=== PATIENT | male | born 1960 | race Caucasian/White ===

== ENCOUNTER 2020-04-05 08:22 | Day surgery (SDC) | payer MEDICARE, SELFPAY ==
--- NOTE | 2020-04-05 | DI.RAD_ITS ---
EXAM: XR PORTABLE CHEST AP POST LINE CLINICAL HISTORY: line placement TECHNIQUE: 2D digital imaging was performed. COMPARISON: No exams were available for comparison FINDINGS: A port has been inserted. The tip lies in the SVC. There is no pneumothorax. There is scarring at the right lung base. There is material overlying the left chest. IMPRESSION: Satisfactory port placement. DATA REPOSITORY: RADIATION DOSE DELIVERED:
--- NOTE | 2020-04-05 08:00 | DI.RAD_ITS ---
EXAM: RF LINE PLACEMENT OR CLINICAL HISTORY: port placement. TECHNIQUE: 2D and realtime digital imaging was performed. CONTRAST MATERIAL: None COMPARISON: No exams were available for comparison FINDINGS: Fluoroscopy was provided for guidance with placing of a port. Please see procedure note for detail s. Fluoro time: 35 sec
[2020-04-05 08:31] VITALS: BP 124/85; PULSE 70; RESP 16; TEMP 35.8; O2SAT 99
[2020-04-05] MEDS: Lactated Ringers 1,000 ML 80 ML IV (09:00)
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
[2020-04-05] MEDS: ceFAZolin 2 GM/50 ML BAG IVPB (10:23)
[2020-04-05] MEDS: Normal Saline 50 ML (10:53)
[2020-04-05] MEDS: Heparin 500 UNITS/5 ML SYRINGE (10:53)
--- NOTE | 2020-04-05 11:08 | ROE_ITS ---
Date of service: 04/05/20 Time of Service: 11:09 Operative Note Operative Note DATE OF PROCEDURE: 04/05/20 PRE-OP DIAGNOSIS: eophageal cancer POST-OP DIAGNOSIS: same PROCEDURE: left buried resevior port SURGEON: Carri Cristobal ANESTHESIA: MAC and local ESTIMATED BLOOD LOSS: 5 COMPLICATIONS: None Patient was transported to: same day Procedure Description: Preoperative Diagnosis: Same Postoperative Diagnosis: esohpageal cancer- recurrence Procedure planned: Port placement Procedure performed: left subclavian port placement Anesthesia: Monitored anesthesia care, local Specimen: none Estimated Blood Loss: Less than 10 ml INDICATIONS Please see the H&P. The risks, benefits and alternatives to implanted port for esophageal cancer were discussed with the patient. We specifically discussed the risks of infection, bleeding, injury to blood vessels and lung, pneumothorax, infections, blood clot, port malfunction, complications of anesthesia, the possible need for further procedures, and other unforetold complications. The patient expressed understanding and questions were answered. Informed consent paperwork was completed. DESCRIPTION OF PROCEDURE The patient was brought to the operating room and placed in a supine position on the operating table. Appropriate monitors were attached. The patient received IV antibiotics preoperatively. After sedation was administered, the patient was positioned, prepped with Chloraprep and draped in the standard fashion. Time out was performed confirming the patient's identity and procedure to be performed. Local anesthetic was infiltrated in the skin and subcutaneous tissue in the area below the left clavicle. Cook needle was used to access the left subclavian vein. There was return of non-pulsatile blood. The guide wire was advanced through the needle and placement confirmed using flouroscopy. The needle was removed and the guide wire was secured. Local anesthetic was infiltrated in the area of planned pocket formation. Skin incision was made sharply and carried down to the subcutaneous tissue. Hemostasis was excellent. The pocket was checked for size and the port fit without difficulty. The dilator and sheath were advanced over the wire under flouroscopy. The dilator and wire were removed. The catheter was flushed with heparinized saline and advanced through the sheath under fluoroscopy. The sheath was then removed with no difficulty. The catheter tip was confirmed in the superior vena cava with fluoroscopy. The catheter was cut at 23 cm and attached to the port and locked in position. The port was positioned in the pocket and secured using Prolene sutures. The port was accessed and withdrew blood and flushed easily. Deep tissue was approximated using Monocryl suture. Further local anesthetic was infiltrated for post- operative pain control. Skin edges were approximated with Monocryl suture. Sterile dressings were applied. The patient was then awakened from sedation and taken to recovery for chest XR in stable condition. All needle, sponge and instrument counts were reported as correct at the conclusion of the case. The patient tolerated the procedure with no immediately apparent complications.
[2020-04-05 11:35] VITALS: BP 125/86; PULSE 78; RESP 17; TEMP 36.6; O2SAT 97
--- NOTE | 2020-04-05 11:36 | PDOC.DSDIS_ITS ---
Discharge Plan Disposition Patient Disposition: HOME Condition: Good Discharge Details Reason For Visit: port a cath Attending Provider: Carri Cristobal Primary Care Provider: Ivelisse Spears Home Meds and New Rx's Prescriptions: No Action albuterol sulfate 2.5 mg /3 mL (0.083 %) Solution For Nebulization 2.5 mg inhalation DIRECTED RF: 0 prochlorperazine maleate 10 mg Tablet 10 mg PO Q6H PRNRF: 0 esomeprazole magnesium 40 mg Capsule,Delayed Release(Dr/Ec) 40 mg PO DAILY RF: 0 albuterol sulfate [ProAir HFA] 90 mcg/actuation Hfa Aerosol Inhaler 2 puff INHALATION PRN PRNRF: 0 naproxen sodium [Aleve] 220 mg Tablet 220 mg PO DAILY PRNRF: 0 Discharge Instructions Additional Instructions: Pain Control Use ice! Ice keeps the swelling down and swelling is what causes pain. Never apply ice directly to the skin. Wrap it in a towel or cloth. Apply ice 20 minutes on and 20 minutes off for pain control. Use as needed. Take tylenol 325 mg by mouth with food every 4 hours as needed for pain. Or ibuprofen 600 mg by mouth with food every 6 hours as needed for pain. Do not take tylenol if you have a history of heavy drinking , hepatits C or liver problems. Do not take ibuprofen if you have a history of stomach ulcers/problem s, bleeding problem or kidney issues. Home care ? Always wash your hands before touching your incision. ? Keep the incision clean, dry, and out of water, keep the incision out of water. ? Do not remove the steri-tapes over the incision. ? You can take a shower in 24 hours and wash the incision with soap and water. Pat dry/don?t scrub. It?s OK to wash around the incision. But don?t spray water directly on it. ? If there is a bandage (dressing) over the incision, change this every 24 hours as instructed by your provider. Using clean hands change the dressing as directed by your healthcare provider. Always wash your hands before changing your dressing. ? Make sure any clothing that touches the incision is loose-fitting. This will prevent rubbing. ? Try to avoid from rough play, contact sports, or physical activities for two weeks. This can put you at risk of opening the incision. ? Make sure you avoid doing things that could cause dirt or sweat to get in or on the incision. As your incision heals, the skin may appear pink or red. It may also feel slightly bumpy or raised. This is called a healing ridge. Over time, the color should fade and the raised skin will become less noticeable. When to seek medical care Call your healthcare provider right away if you have any of these: ? More pain, redness, swelling, bleeding, or foul-smelling discharge around the incision area ? Fever of 101?F (38.3?C) or higher, or as directed by your child's healthcare provider ? Shaking chills ? Vomiting or nausea that doesn?t go away ? Numbness, coldness, or tingling around the incision area, or changes in skin color ? Opening of the sutures or wound Stitches or chicho come apart or fall out or surgical tape falls off before 7 days, or as directed by your healthcare provider -F/u w/ oncology as directed for chemo and flushing the port. Activity:: No lifting over 5 pounds with left arm x5 days Remove Dressings/Wound Care:: 24 hours Shower/Bathe:: 24 hours Diet:: Small light meals x24 hours Discharge Orders Discharge Orders: Discharge Order (Routine); Ordered 04/05/20 Ordered By: Carri Cristobal DS: Diagnosis Discharge Diagnosis (1) Asthma: Status: Chronic (2) Esophageal cancer: Status: Acute (3) HTN (hypertension): Status: Chronic (4) Mixed hyperlipidemia: Status: Acute
== END 2020-04-05 11:15 | disposition home or self-care (01) ==
PROVIDERS: PCP Physician Assistant; Visit Provider Surgery
PROC: (CPT 36561; principal; 2020-04-05 10:00)
DX: Z45.2 Encounter for adjustment and management of vascular access device (principal); C15.9 Malignant neoplasm of esophagus, unspecified
CPT/HCPCS: 36561; 71045; 77001; NC; C1788; J0690

== ENCOUNTER 2020-04-19 02:42 | Outpatient (RCR) | payer MEDICARE, SELFPAY ==
[2020-04-19] MEDS: Normal Saline Flush 10 ML SYR IVP (10:20)
[2020-04-19 10:27] LABS: Abs Immature Grans 0.01 10^3/uL (0.0-0.06); Absolute Basophil Count 0.05 10^3/uL (0.0-0.2); Absolute Eosinophil Count 0.11 10^3/uL (0.0-0.7); Absolute Lymphocyte Count 1.26 10^3/uL (1.2-3.4); Absolute Monocyte Count 0.71 10^3/uL (0.1-0.8); Absolute Neutrophil Count 3.07 10^3/uL (1.2-6.7); Eosinophils % 2.1; HCT 47.7 % (40.0-50.0); HGB 16.6 g/dL (13.5-17.5); Immature Grans % 0.2; Lymphocytes % 24.2; MCH 33.3 pg (27.0-33.0); MCHC 34.8 % (32.0-36.0); MCV 95.6 fL (80-95); MPV 9.9 fL (8.0-11.0); Monocytes % 13.6; Neutrophils % 58.9; Nucleated RBC 0 %; Platelet Count 192 10^3/uL (130-400); RBC 4.99 10^6/uL (4.36-5.78); RDW-SD 41.8 fL; WBC 5.21 10^3/uL (4.4-10.8)
[2020-04-19 10:40] LABS: ALT 26 U/L (16-63); AST 17 U/L (15-37); Alkaline Phosphatase 78 U/L (46-116); Anion Gap 7.2 mmol/L (3-11); BUN 14 mg/dL (7-18); Bilirubin, Total 0.4 mg/dL (0.2-1.0); CO2 27.8 mmol/L (21.0-32.0); CREATININE 0.78 mg/dL (0.70-1.30); Chloride 104 mmol/L (98-107); Glucose 165 mg/dL (74-106); Potassium 4.4 mmol/L (3.5-5.1); Sodium 139 mmol/L (136-145); Total Protein 7.2 g/dL (6.4-8.2)
== END 2020-04-19 23:59 | disposition home or self-care (01) ==
LOC: INF 02:42
PROVIDERS: PCP Physician Assistant; Visit Provider Nurse Practitioner Family
DX: C15.5 Malignant neoplasm of lower third of esophagus (principal); Z45.2 Encounter for adjustment and management of vascular access device
CPT/HCPCS: 36591; 80053; 85025

== ENCOUNTER 2020-05-03 15:35 | Outpatient (REF) | payer MEDICARE, SELFPAY ==
[2020-05-03 16:25] LABS: Bilirubin Negative (Negative); Blood Negative (Negative); Clarity Clear (Clear); Glucose Negative (Negative); Ketones Negative (Negative); Leukocyte Esterase Negative (Negative); Nitrite Negative (Negative); Urobilinogen 0.2 EU/dL (Up TO 0.2)
== END 2020-05-03 15:55 ==
LOC: LBN 15:35
PROVIDERS: PCP Physician Assistant; Visit Provider Internal Medicine Medical Oncology
DX: C15.5 Malignant neoplasm of lower third of esophagus (principal)
CPT/HCPCS: 81003

== ENCOUNTER 2020-05-17 02:12 | Outpatient (RCR) | payer MEDICARE, SELFPAY ==
[2020-05-03] MEDS: Normal Saline Flush 10 ML SYR IVP (10:12)
[2020-05-03 10:47] LABS: Abs Immature Grans 0.01 10^3/uL (0.0-0.06); Absolute Basophil Count 0.05 10^3/uL (0.0-0.2); Absolute Eosinophil Count 0.12 10^3/uL (0.0-0.7); Absolute Lymphocyte Count 0.97 10^3/uL (1.2-3.4); Absolute Monocyte Count 0.71 10^3/uL (0.1-0.8); Basophils % 1.3; Eosinophils % 3.1; HCT 39.8 % (40.0-50.0); HGB 14.4 g/dL (13.5-17.5); Immature Grans % 0.3; Lymphocytes % 24.8; MCH 33.5 pg (27.0-33.0); MCHC 36.2 % (32.0-36.0); MCV 92.6 fL (80-95); MPV 9.7 fL (8.0-11.0); Monocytes % 18.2; Neutrophils % 52.3; Nucleated RBC 0 %; Platelet Count 192 10^3/uL (130-400); RDW 12.1 % (11.8-14.1); RDW-SD 40.9 fL; WBC 3.91 10^3/uL (4.4-10.8)
[2020-05-03 10:48] LABS: ALT 34 U/L (16-63); AST 19 U/L (15-37); Albumin 3.8 g/dL (3.4-5.0); Alkaline Phosphatase 81 U/L (46-116); Anion Gap 6.9 mmol/L (3-11); BUN 8 mg/dL (7-18); Bilirubin, Total 0.3 mg/dL (0.2-1.0); CO2 30.1 mmol/L (21.0-32.0); CREATININE 0.74 mg/dL (0.70-1.30); Calcium 8.6 mg/dL (8.5-10.1); Chloride 104 mmol/L (98-107); Glucose 104 mg/dL (74-106); Potassium 3.8 mmol/L (3.5-5.1); Sodium 141 mmol/L (136-145); Total Protein 6.9 g/dL (6.4-8.2)
[2020-05-03 10:52] LABS: Absolute Neutrophil Count 2.04 10^3/uL (1.2-6.7)
[2020-05-17] MEDS: Normal Saline Flush 10 ML SYR IVP (10:10)
[2020-05-17 10:20] LABS: Absolute Basophil Count 0.04 10^3/uL (0.0-0.2); Absolute Eosinophil Count 0.08 10^3/uL (0.0-0.7); Absolute Lymphocyte Count 1.01 10^3/uL (1.2-3.4); Absolute Monocyte Count 0.51 10^3/uL (0.1-0.8); Absolute Neutrophil Count 1.29 10^3/uL (1.2-6.7); Basophils % 1.4; Eosinophils % 2.7; HCT 41.5 % (40.0-50.0); HGB 14.7 g/dL (13.5-17.5); Lymphocytes % 34.5; MCH 33.4 pg (27.0-33.0); MCHC 35.4 % (32.0-36.0); MCV 94.3 fL (80-95); MPV 9.4 fL (8.0-11.0); Monocytes % 17.4; Nucleated RBC 0 %; Platelet Count 136 10^3/uL (130-400); RDW 13.1 % (11.8-14.1); RDW-SD 42.4 fL; WBC 2.93 10^3/uL (4.4-10.8)
[2020-05-17 10:39] LABS: ALT 32 U/L (16-63); AST 17 U/L (15-37); Albumin 3.8 g/dL (3.4-5.0); Alkaline Phosphatase 93 U/L (46-116); Anion Gap 6.2 mmol/L (3-11); BUN 12 mg/dL (7-18); Bilirubin, Total 0.5 mg/dL (0.2-1.0); CO2 27.8 mmol/L (21.0-32.0); Calcium 9.1 mg/dL (8.5-10.1); Chloride 105 mmol/L (98-107); Glucose 155 mg/dL (74-106); Potassium 3.5 mmol/L (3.5-5.1); Sodium 139 mmol/L (136-145)
== END 2020-05-19 23:59 | disposition home or self-care (01) ==
LOC: INF 02:12
PROVIDERS: PCP Physician Assistant; Visit Provider Nurse Practitioner Family
DX: C15.5 Malignant neoplasm of lower third of esophagus (principal); Z45.2 Encounter for adjustment and management of vascular access device
CPT/HCPCS: 36591; 80053; 85025

== ENCOUNTER 2020-06-07 01:34 | Outpatient (RCR) | payer MEDICARE, SELFPAY ==
[2020-05-31] MEDS: Normal Saline Flush 10 ML SYR IVP (10:35)
[2020-05-31] MEDS: Heparin 500 UNITS/5 ML SYRINGE IV (10:35)
[2020-05-31 10:53] LABS: Abs Immature Grans 0.01 10^3/uL (0.0-0.06); Absolute Basophil Count 0.03 10^3/uL (0.0-0.2); Absolute Eosinophil Count 0.02 10^3/uL (0.0-0.7); Absolute Lymphocyte Count 0.87 10^3/uL (1.2-3.4); Absolute Monocyte Count 0.64 10^3/uL (0.1-0.8); Absolute Neutrophil Count 1.95 10^3/uL (1.2-6.7); Basophils % 0.9; Eosinophils % 0.6; HCT 40.2 % (40.0-50.0); HGB 14.3 g/dL (13.5-17.5); Immature Grans % 0.3; Lymphocytes % 24.7; MCH 33.3 pg (27.0-33.0); MCHC 35.6 % (32.0-36.0); MCV 93.5 fL (80-95); MPV 9.8 fL (8.0-11.0); Monocytes % 18.2; Neutrophils % 55.3; Nucleated RBC 0 %; Platelet Count 155 10^3/uL (130-400); RDW 13.8 % (11.8-14.1); RDW-SD 45.7 fL; WBC 3.52 10^3/uL (4.4-10.8)
[2020-05-31 11:09] LABS: ALT 28 U/L (16-63); AST 17 U/L (15-37); Albumin 3.4 g/dL (3.4-5.0); Alkaline Phosphatase 87 U/L (46-116); Anion Gap 10.4 mmol/L (3-11); BUN 14 mg/dL (7-18); Bilirubin, Total 0.6 mg/dL (0.2-1.0); CO2 26.6 mmol/L (21.0-32.0); CREATININE 0.97 mg/dL (0.70-1.30); Calcium 9.8 mg/dL (8.5-10.1); Chloride 102 mmol/L (98-107); Glucose 230 mg/dL (74-106); Potassium 3.3 mmol/L (3.5-5.1); Sodium 139 mmol/L (136-145); Total Protein 7.6 g/dL (6.4-8.2)
[2020-06-07] MEDS: Normal Saline Flush 10 ML SYR IVP (11:11)
[2020-06-07 11:13] LABS: Abs Immature Grans 0.07 10^3/uL (0.0-0.06); Absolute Basophil Count 0.03 10^3/uL (0.0-0.2); Absolute Eosinophil Count 0.04 10^3/uL (0.0-0.7); Absolute Lymphocyte Count 1.03 10^3/uL (1.2-3.4); Absolute Neutrophil Count 2.47 10^3/uL (1.2-6.7); Basophils % 0.7; Eosinophils % 0.9; HCT 40.4 % (40.0-50.0); HGB 14.5 g/dL (13.5-17.5); Immature Grans % 1.7; Lymphocytes % 24.3; MCH 34.4 pg (27.0-33.0); MCHC 35.9 % (32.0-36.0); MCV 95.7 fL (80-95); Monocytes % 14.2; Neutrophils % 58.2; Nucleated RBC 0 %; Platelet Count 316 10^3/uL (130-400); RBC 4.22 10^6/uL (4.36-5.78); RDW-SD 47.9 fL; WBC 4.24 10^3/uL (4.4-10.8)
[2020-06-07 11:25] LABS: ALT 33 U/L (16-63); AST 20 U/L (15-37); Albumin 3.5 g/dL (3.4-5.0); Alkaline Phosphatase 126 U/L (46-116); Anion Gap 6.6 mmol/L (3-11); BUN 9 mg/dL (7-18); Bilirubin, Total 0.3 mg/dL (0.2-1.0); CO2 29.4 mmol/L (21.0-32.0); CREATININE 0.87 mg/dL (0.70-1.30); Calcium 9.5 mg/dL (8.5-10.1); Chloride 104 mmol/L (98-107); Glucose 121 mg/dL (74-106); Sodium 140 mmol/L (136-145); Total Protein 7.3 g/dL (6.4-8.2)
== END 2020-06-19 23:59 | disposition home or self-care (01) ==
LOC: INF 01:34
PROVIDERS: PCP Physician Assistant; Visit Provider Nurse Practitioner Family
DX: C15.5 Malignant neoplasm of lower third of esophagus (principal); Z45.2 Encounter for adjustment and management of vascular access device
CPT/HCPCS: 36591; 80053; 85025

== ENCOUNTER 2020-07-19 02:06 | Outpatient (RCR) | payer MEDICARE, SELFPAY ==
[2020-06-21] MEDS: Normal Saline Flush 10 ML SYR IVP (10:40)
[2020-06-21 10:57] LABS: Abs Immature Grans 0.01 10^3/uL (0.0-0.06); Absolute Basophil Count 0.04 10^3/uL (0.0-0.2); Absolute Eosinophil Count 0.07 10^3/uL (0.0-0.7); Absolute Lymphocyte Count 1.03 10^3/uL (1.2-3.4); Absolute Neutrophil Count 2.47 10^3/uL (1.2-6.7); Basophils % 0.9; Eosinophils % 1.7; HCT 37.4 % (40.0-50.0); HGB 13.2 g/dL (13.5-17.5); Immature Grans % 0.2; Lymphocytes % 24.4; MCH 33.5 pg (27.0-33.0); MCHC 35.3 % (32.0-36.0); MCV 94.9 fL (80-95); MPV 9.6 fL (8.0-11.0); Monocytes % 14.2; Neutrophils % 58.6; Nucleated RBC 0 %; Platelet Count 135 10^3/uL (130-400); RBC 3.94 10^6/uL (4.36-5.78); RDW 15.7 % (11.8-14.1); RDW-SD 52.2 fL; WBC 4.22 10^3/uL (4.4-10.8)
[2020-06-21 11:08] LABS: ALT 31 U/L (16-63); AST 18 U/L (15-37); Albumin 3.6 g/dL (3.4-5.0); Alkaline Phosphatase 109 U/L (46-116); Anion Gap 6.9 mmol/L (3-11); BUN 11 mg/dL (7-18); Bilirubin, Total 0.3 mg/dL (0.2-1.0); CO2 27.1 mmol/L (21.0-32.0); Calcium 8.6 mg/dL (8.5-10.1); Chloride 104 mmol/L (98-107); Glucose 158 mg/dL (74-106); Potassium 3.5 mmol/L (3.5-5.1); Sodium 138 mmol/L (136-145)
== END 2020-07-19 23:59 | disposition home or self-care (01) ==
LOC: INF 02:06
PROVIDERS: PCP Physician Assistant; Visit Provider Nurse Practitioner Family
DX: C15.5 Malignant neoplasm of lower third of esophagus (principal); Z45.2 Encounter for adjustment and management of vascular access device
CPT/HCPCS: 36591; 80053; 85025

== ENCOUNTER 2020-08-02 01:23 | Outpatient (RCR) | payer MEDICARE, SELFPAY ==
[2020-08-02] MEDS: Heparin 500 UNITS/5 ML SYRINGE IV (13:37)
[2020-08-02] MEDS: Normal Saline Flush 10 ML SYR IVP (13:37)
[2020-08-02 13:48] LABS: Abs Immature Grans 0.01 10^3/uL (0.0-0.06); Absolute Basophil Count 0.04 10^3/uL (0.0-0.2); Absolute Eosinophil Count 0.14 10^3/uL (0.0-0.7); Absolute Lymphocyte Count 1.27 10^3/uL (1.2-3.4); Absolute Monocyte Count 0.61 10^3/uL (0.1-0.8); Absolute Neutrophil Count 2.74 10^3/uL (1.2-6.7); Basophils % 0.8; Eosinophils % 2.9; HCT 42.9 % (40.0-50.0); Immature Grans % 0.2; Lymphocytes % 26.4; MCH 34.8 pg (27.0-33.0); MCV 99.5 fL (80-95); MPV 9.9 fL (8.0-11.0); Monocytes % 12.7; Nucleated RBC 0 %; Platelet Count 205 10^3/uL (130-400); RBC 4.31 10^6/uL (4.36-5.78); RDW 13.6 % (11.8-14.1); RDW-SD 50.5 fL; WBC 4.81 10^3/uL (4.4-10.8)
[2020-08-02 14:01] LABS: ALT 35 U/L (16-63); AST 19 U/L (15-37); Alkaline Phosphatase 98 U/L (46-116); Anion Gap 5.5 mmol/L (3-11); BUN 7 mg/dL (7-18); Bilirubin, Total 0.4 mg/dL (0.2-1.0); CO2 28.5 mmol/L (21.0-32.0); CREATININE 0.83 mg/dL (0.70-1.30); Chloride 105 mmol/L (98-107); Glucose 100 mg/dL (74-106); Potassium 3.9 mmol/L (3.5-5.1); Sodium 139 mmol/L (136-145); Total Protein 7.5 g/dL (6.4-8.2)
== END 2020-08-19 23:59 | disposition home or self-care (01) ==
LOC: INF 01:23
PROVIDERS: PCP Physician Assistant; Visit Provider Nurse Practitioner Family
DX: C15.5 Malignant neoplasm of lower third of esophagus (principal); Z45.2 Encounter for adjustment and management of vascular access device
CPT/HCPCS: 36591; 80053; 85025

== ENCOUNTER 2020-09-06 01:46 | Outpatient (RCR) | payer MEDICARE, SELFPAY ==
[2020-09-06] MEDS: Normal Saline Flush 10 ML SYR IVP (10:17)
[2020-09-06 10:18] LABS: Absolute Basophil Count 0.03 10^3/uL (0.0-0.2); Absolute Eosinophil Count 0.11 10^3/uL (0.0-0.7); Absolute Lymphocyte Count 1.11 10^3/uL (1.2-3.4); Absolute Monocyte Count 0.56 10^3/uL (0.1-0.8); Absolute Neutrophil Count 1.67 10^3/uL (1.2-6.7); Basophils % 0.9; Eosinophils % 3.2; HCT 46.3 % (40.0-50.0); HGB 16.1 g/dL (13.5-17.5); Lymphocytes % 31.9; MCH 34.2 pg (27.0-33.0); MCHC 34.8 % (32.0-36.0); MCV 98.3 fL (80-95); MPV 9.6 fL (8.0-11.0); Monocytes % 16.1; Neutrophils % 47.9; Nucleated RBC 0 %; Platelet Count 213 10^3/uL (130-400); RBC 4.71 10^6/uL (4.36-5.78); RDW 11.6 % (11.8-14.1); RDW-SD 42.3 fL; WBC 3.48 10^3/uL (4.4-10.8)
[2020-09-06 10:31] LABS: ALT 40 U/L (16-63); AST 22 U/L (15-37); Albumin 3.9 g/dL (3.4-5.0); Alkaline Phosphatase 114 U/L (46-116); BUN 11 mg/dL (7-18); Bilirubin, Total 0.3 mg/dL (0.2-1.0); CREATININE 0.81 mg/dL (0.70-1.30); Calcium 8.8 mg/dL (8.5-10.1); Chloride 105 mmol/L (98-107); Glucose 141 mg/dL (74-106); Sodium 139 mmol/L (136-145); Total Protein 7.4 g/dL (6.4-8.2)
== END 2020-09-19 23:59 | disposition home or self-care (01) ==
LOC: INF 01:46
PROVIDERS: PCP Physician Assistant
DX: C15.5 Malignant neoplasm of lower third of esophagus (principal); Z45.2 Encounter for adjustment and management of vascular access device
CPT/HCPCS: 36591; 80053; 85025

== ENCOUNTER 2020-10-04 01:28 | Outpatient (RCR) | payer MEDICARE, SELFPAY ==
[2020-10-04] MEDS: Normal Saline Flush 10 ML SYR IVP (10:35)
[2020-10-04 11:01] LABS: Abs Immature Grans 0.03 10^3/uL (0.0-0.06); Absolute Basophil Count 0.05 10^3/uL (0.0-0.2); Absolute Eosinophil Count 0.05 10^3/uL (0.0-0.7); Absolute Lymphocyte Count 1.43 10^3/uL (1.2-3.4); Absolute Monocyte Count 1.14 10^3/uL (0.1-0.8); Absolute Neutrophil Count 2.65 10^3/uL (1.2-6.7); Basophils % 0.9; Eosinophils % 0.9; HGB 16.2 g/dL (13.5-17.5); Immature Grans % 0.6; Lymphocytes % 26.7; MCH 33.7 pg (27.0-33.0); MCHC 34.5 % (32.0-36.0); MCV 97.7 fL (80-95); MPV 9.6 fL (8.0-11.0); Monocytes % 21.3; Neutrophils % 49.6; Nucleated RBC 0 %; Platelet Count 205 10^3/uL (130-400); RBC 4.81 10^6/uL (4.36-5.78); RDW 12.8 % (11.8-14.1); WBC 5.35 10^3/uL (4.4-10.8)
[2020-10-04 11:13] LABS: ALT 39 U/L (16-63); AST 13 U/L (15-37); Albumin 4.1 g/dL (3.4-5.0); Alkaline Phosphatase 120 U/L (46-116); Anion Gap 6.5 mmol/L (3-11); BUN 9 mg/dL (7-18); Bilirubin, Total 0.3 mg/dL (0.2-1.0); CO2 28.5 mmol/L (21.0-32.0); CREATININE 0.8 mg/dL (0.70-1.30); Calcium 9.1 mg/dL (8.5-10.1); Chloride 105 mmol/L (98-107); Glucose 66 mg/dL (74-106); Potassium 4.5 mmol/L (3.5-5.1); Sodium 140 mmol/L (136-145); Total Protein 7.8 g/dL (6.4-8.2)
== END 2020-10-17 23:59 | disposition home or self-care (01) ==
LOC: INF 01:28
PROVIDERS: PCP Physician Assistant; Visit Provider Nurse Practitioner Family
DX: C15.5 Malignant neoplasm of lower third of esophagus (principal); Z45.2 Encounter for adjustment and management of vascular access device
CPT/HCPCS: 36591; 80053; 85025

== ENCOUNTER 2020-11-15 02:58 | Outpatient (RCR) | payer MEDICARE, SELFPAY ==
[2020-10-18] MEDS: Normal Saline Flush 10 ML SYR IVP (10:25)
[2020-10-18 10:42] LABS: Abs Immature Grans 0.01 10^3/uL (0.0-0.06); Absolute Basophil Count 0.04 10^3/uL (0.0-0.2); Absolute Eosinophil Count 0.09 10^3/uL (0.0-0.7); Absolute Lymphocyte Count 1.15 10^3/uL (1.2-3.4); Absolute Monocyte Count 0.64 10^3/uL (0.1-0.8); Absolute Neutrophil Count 2.24 10^3/uL (1.2-6.7); Eosinophils % 2.2; HCT 40.6 % (40.0-50.0); HGB 14.6 g/dL (13.5-17.5); Immature Grans % 0.2; Lymphocytes % 27.6; MCH 34.1 pg (27.0-33.0); MCV 94.9 fL (80-95); MPV 9.7 fL (8.0-11.0); Monocytes % 15.3; Neutrophils % 53.7; Nucleated RBC 0 %; Platelet Count 137 10^3/uL (130-400); RBC 4.28 10^6/uL (4.36-5.78); RDW 13.1 % (11.8-14.1); RDW-SD 44.3 fL; WBC 4.17 10^3/uL (4.4-10.8)
[2020-10-18 10:54] LABS: ALT 41 U/L (16-63); AST 21 U/L (15-37); Albumin 3.8 g/dL (3.4-5.0); Alkaline Phosphatase 104 U/L (46-116); Anion Gap 4.7 mmol/L (3-11); BUN 10 mg/dL (7-18); Bilirubin, Total 0.5 mg/dL (0.2-1.0); CO2 27.3 mmol/L (21.0-32.0); CREATININE 0.8 mg/dL (0.70-1.30); Calcium 8.9 mg/dL (8.5-10.1); Chloride 108 mmol/L (98-107); Glucose 104 mg/dL (74-106); Potassium 3.6 mmol/L (3.5-5.1); Sodium 140 mmol/L (136-145); Total Protein 7.2 g/dL (6.4-8.2)
[2020-10-18 16:42] LABS: CEA 48.7 ng/mL (See Note)
[2020-11-01] MEDS: Normal Saline Flush 10 ML SYR IVP (10:16)
[2020-11-01] MEDS: Heparin 500 UNITS/5 ML SYRINGE IV (10:16)
[2020-11-01 10:29] LABS: Abs Immature Grans 0.01 10^3/uL (0.0-0.06); Absolute Basophil Count 0.04 10^3/uL (0.0-0.2); Absolute Eosinophil Count 0.06 10^3/uL (0.0-0.7); Absolute Lymphocyte Count 1.04 10^3/uL (1.2-3.4); Absolute Monocyte Count 0.69 10^3/uL (0.1-0.8); Basophils % 1.1; Eosinophils % 1.6; HCT 41.1 % (40.0-50.0); Immature Grans % 0.3; Lymphocytes % 27.7; MCH 34.2 pg (27.0-33.0); MCHC 36.5 % (32.0-36.0); MCV 93.8 fL (80-95); MPV 9.7 fL (8.0-11.0); Monocytes % 18.4; Neutrophils % 50.9; Nucleated RBC 0 %; Platelet Count 119 10^3/uL (130-400); RBC 4.38 10^6/uL (4.36-5.78); WBC 3.76 10^3/uL (4.4-10.8)
[2020-11-01 10:32] LABS: Absolute Neutrophil Count 1.91 10^3/uL (1.2-6.7)
[2020-11-01 10:47] LABS: ALT 41 U/L (16-63); AST 22 U/L (15-37); Alkaline Phosphatase 120 U/L (46-116); Anion Gap 10.5 mmol/L (3-11); BUN 13 mg/dL (7-18); Bilirubin, Total 0.6 mg/dL (0.2-1.0); CO2 26.5 mmol/L (21.0-32.0); Calcium 9.4 mg/dL (8.5-10.1); Chloride 105 mmol/L (98-107); Glucose 124 mg/dL (74-106); Potassium 3.4 mmol/L (3.5-5.1); Sodium 142 mmol/L (136-145); Total Protein 7.7 g/dL (6.4-8.2)
[2020-11-01 18:07] LABS: CEA 54.8 ng/mL (See Note)
[2020-11-15] MEDS: Normal Saline Flush 10 ML SYR IVP (10:22)
[2020-11-15 10:35] LABS: Abs Immature Grans 0.01 10^3/uL (0.0-0.06); Absolute Basophil Count 0.03 10^3/uL (0.0-0.2); Absolute Eosinophil Count 0.04 10^3/uL (0.0-0.7); Absolute Lymphocyte Count 1.04 10^3/uL (1.2-3.4); Absolute Monocyte Count 0.69 10^3/uL (0.1-0.8); Absolute Neutrophil Count 2.02 10^3/uL (1.2-6.7); Basophils % 0.8; HCT 39.3 % (40.0-50.0); HGB 14.6 g/dL (13.5-17.5); Immature Grans % 0.3; Lymphocytes % 27.2; MCHC 37.2 % (32.0-36.0); MCV 94.2 fL (80-95); MPV 9.8 fL (8.0-11.0); Neutrophils % 52.7; Nucleated RBC 0 %; Platelet Count 124 10^3/uL (130-400); RBC 4.17 10^6/uL (4.36-5.78); RDW-SD 48.5 fL; WBC 3.83 10^3/uL (4.4-10.8)
[2020-11-15 10:43] LABS: ALT 47 U/L (16-63); AST 25 U/L (15-37); Albumin 3.9 g/dL (3.4-5.0); Alkaline Phosphatase 113 U/L (46-116); Anion Gap 8.5 mmol/L (3-11); BUN 13 mg/dL (7-18); Bilirubin, Total 0.5 mg/dL (0.2-1.0); CO2 26.5 mmol/L (21.0-32.0); CREATININE 0.9 mg/dL (0.70-1.30); Calcium 9.2 mg/dL (8.5-10.1); Chloride 105 mmol/L (98-107); Glucose 163 mg/dL (74-106); Potassium 3.7 mmol/L (3.5-5.1); Sodium 140 mmol/L (136-145); Total Protein 7.5 g/dL (6.4-8.2)
[2020-11-15 16:36] LABS: CEA 50.8 ng/mL (See Note)
== END 2020-11-17 23:59 | disposition home or self-care (01) ==
LOC: INF 02:58
PROVIDERS: PCP Physician Assistant; Visit Provider Nurse Practitioner Family
DX: C15.5 Malignant neoplasm of lower third of esophagus (principal); C79.9 Secondary malignant neoplasm of unspecified site; Z45.2 Encounter for adjustment and management of vascular access device
CPT/HCPCS: 36591; 80053; 82378; 85025

== ENCOUNTER 2020-11-29 02:59 | Outpatient (RCR) | payer MEDICARE, SELFPAY ==
[2020-11-29 10:13] LABS: Abs Immature Grans 0.01 10^3/uL (0.0-0.06); Absolute Basophil Count 0.03 10^3/uL (0.0-0.2); Absolute Eosinophil Count 0.05 10^3/uL (0.0-0.7); Absolute Lymphocyte Count 1.02 10^3/uL (1.2-3.4); Absolute Monocyte Count 0.94 10^3/uL (0.1-0.8); Absolute Neutrophil Count 0.82 10^3/uL (1.2-6.7); Eosinophils % 1.7; HCT 37.1 % (40.0-50.0); HGB 13.1 g/dL (13.5-17.5); Immature Grans % 0.3; Lymphocytes % 35.5; MCH 34.9 pg (27.0-33.0); MCHC 35.3 % (32.0-36.0); MCV 98.9 fL (80-95); MPV 9.8 fL (8.0-11.0); Monocytes % 32.8; Neutrophils % 28.7; Nucleated RBC 0 %; Platelet Count 123 10^3/uL (130-400); RBC 3.75 10^6/uL (4.36-5.78); RDW 15.9 % (11.8-14.1); RDW-SD 56.9 fL; WBC 2.87 10^3/uL (4.4-10.8)
[2020-11-29] MEDS: Normal Saline Flush 10 ML SYR IVP (10:20)
[2020-11-29 10:24] LABS: ALT 43 U/L (16-63); AST 33 U/L (15-37); Albumin 3.6 g/dL (3.4-5.0); Alkaline Phosphatase 109 U/L (46-116); Anion Gap 6.3 mmol/L (3-11); BUN 7 mg/dL (7-18); Bilirubin, Total 0.5 mg/dL (0.2-1.0); CO2 30.7 mmol/L (21.0-32.0); CREATININE 0.9 mg/dL (0.70-1.30); Calcium 8.8 mg/dL (8.5-10.1); Chloride 103 mmol/L (98-107); Glucose 124 mg/dL (74-106); Potassium 4.2 mmol/L (3.5-5.1); Sodium 140 mmol/L (136-145); Total Protein 7.3 g/dL (6.4-8.2)
[2020-11-29 10:37] LABS: Diff Comment Diff Reviewed; RBC Morphology Normal
[2020-11-29 17:07] LABS: CEA 45.4 ng/mL (See Note)
== END 2020-12-17 23:59 | disposition home or self-care (01) ==
LOC: INF 02:59
PROVIDERS: PCP Physician Assistant; Visit Provider Nurse Practitioner Family
DX: C79.9 Secondary malignant neoplasm of unspecified site (principal); C15.5 Malignant neoplasm of lower third of esophagus; Z45.2 Encounter for adjustment and management of vascular access device
CPT/HCPCS: 36591; 80053; 82378; 85025

== ENCOUNTER 2021-03-07 15:44 | Outpatient (REF) | payer MEDICARE, SELFPAY ==
[2021-03-07 16:08] LABS: Abs Immature Grans 0.01 10^3/uL (0.0-0.06); Absolute Basophil Count 0.04 10^3/uL (0.0-0.2); Absolute Lymphocyte Count 1.07 10^3/uL (1.2-3.4); Absolute Monocyte Count 0.63 10^3/uL (0.1-0.8); Basophils % 0.8; Eosinophils % 2.1; HCT 45.8 % (40.0-50.0); HGB 15.8 g/dL (13.5-17.5); Immature Grans % 0.2; Lymphocytes % 22.5; MCH 34.8 pg (27.0-33.0); MCHC 34.5 % (32.0-36.0); MCV 100.9 fL (80-95); MPV 10.3 fL (8.0-11.0); Monocytes % 13.3; Neutrophils % 61.1; Nucleated RBC 0 %; Platelet Count 181 10^3/uL (130-400); RBC 4.54 10^6/uL (4.36-5.78); RDW 11.3 % (11.8-14.1); WBC 4.75 10^3/uL (4.4-10.8)
[2021-03-07 16:22] LABS: ALT 35 U/L (16-63); AST 22 U/L (15-37); Albumin 3.9 g/dL (3.4-5.0); Alkaline Phosphatase 102 U/L (46-116); Anion Gap 6.9 mmol/L (3-11); BUN 14 mg/dL (7-18); Bilirubin, Total 0.4 mg/dL (0.2-1.0); CO2 27.1 mmol/L (21.0-32.0); CREATININE 0.8 mg/dL (0.70-1.30); Calcium 8.8 mg/dL (8.5-10.1); Chloride 106 mmol/L (98-107); Glucose 109 mg/dL (74-106); Sodium 140 mmol/L (136-145); Total Protein 7.4 g/dL (6.4-8.2)
[2021-03-08 18:04] LABS: CEA 63.4 ng/mL (See Note)
== END 2021-03-07 15:45 | disposition home or self-care (01) ==
LOC: LBN 15:44
PROVIDERS: PCP Physician Assistant; Visit Provider Internal Medicine Medical Oncology
DX: C15.9 Malignant neoplasm of esophagus, unspecified (principal); C79.89 Secondary malignant neoplasm of other specified sites
CPT/HCPCS: 80053; 82378; 85025

== ENCOUNTER 2021-06-13 00:57 | Outpatient (RCR) | payer MEDICARE, SELFPAY ==
[2021-06-13] MEDS: Normal Saline Flush 10 ML SYR IVP (12:49)
[2021-06-13] MEDS: Heparin 500 UNITS/5 ML SYRINGE IV (12:50)
[2021-06-13 12:56] LABS: Absolute Basophil Count 0.04 10^3/uL (0.0-0.2); Absolute Lymphocyte Count 1.16 10^3/uL (1.2-3.4); Absolute Monocyte Count 0.65 10^3/uL (0.1-0.8); Basophils % 0.8; HCT 45.9 % (40.0-50.0); HGB 16.2 g/dL (13.5-17.5); Lymphocytes % 23.4; MCH 34.5 pg (27.0-33.0); MCHC 35.3 % (32.0-36.0); MCV 97.9 fL (80-95); MPV 9.7 fL (8.0-11.0); Monocytes % 13.1; Neutrophils % 60.7; Nucleated RBC 0 %; Platelet Count 189 10^3/uL (130-400); RBC 4.69 10^6/uL (4.36-5.78); RDW 12.1 % (11.8-14.1); RDW-SD 44.1 fL; WBC 4.95 10^3/uL (4.4-10.8)
[2021-06-13 13:41] LABS: ALT 30 U/L (16-63); AST 24 U/L (15-37); Albumin 4.1 g/dL (3.4-5.0); Alkaline Phosphatase 96 U/L (46-116); BUN 11 mg/dL (7-18); Bilirubin, Total 0.5 mg/dL (0.2-1.0); CREATININE 0.9 mg/dL (0.70-1.30); Calcium 9.2 mg/dL (8.5-10.1); Chloride 105 mmol/L (98-107); Glucose 110 mg/dL (74-106); Magnesium 2.2 mg/dL (1.8-2.4); Potassium 4.4 mmol/L (3.5-5.1); Sodium 143 mmol/L (136-145); Total Protein 7.5 g/dL (6.4-8.2)
[2021-06-13 23:39] LABS: CEA 108.9 ng/mL (See Note)
== END 2021-06-19 23:59 | disposition home or self-care (01) ==
LOC: INF 00:57
PROVIDERS: Internal Medicine Medical Oncology; PCP Physician Assistant
DX: C79.9 Secondary malignant neoplasm of unspecified site (principal); C15.9 Malignant neoplasm of esophagus, unspecified; Z45.2 Encounter for adjustment and management of vascular access device
CPT/HCPCS: 36415; 36591; 80053; 96523; 99195; 82378; 83735; 85025

== ENCOUNTER 2021-07-11 01:47 | Outpatient (RCR) | payer MEDICARE, SELFPAY ==
[2021-06-27] MEDS: Normal Saline Flush 10 ML SYR IVP (13:00)
[2021-06-27] MEDS: Heparin 500 UNITS/5 ML SYRINGE IV (13:00)
[2021-06-27 13:09] LABS: Abs Immature Grans 0.01 10^3/uL (0.0-0.06); Absolute Basophil Count 0.03 10^3/uL (0.0-0.2); Absolute Eosinophil Count 0.06 10^3/uL (0.0-0.7); Absolute Lymphocyte Count 1.16 10^3/uL (1.2-3.4); Absolute Neutrophil Count 2.72 10^3/uL (1.2-6.7); Basophils % 0.6; Eosinophils % 1.3; HCT 43.7 % (40.0-50.0); HGB 15.4 g/dL (13.5-17.5); Immature Grans % 0.2; Lymphocytes % 24.8; MCH 33.8 pg (27.0-33.0); MCHC 35.2 % (32.0-36.0); MPV 9.2 fL (8.0-11.0); Neutrophils % 58.1; Nucleated RBC 0 %; Platelet Count 171 10^3/uL (130-400); RBC 4.55 10^6/uL (4.36-5.78); RDW 11.9 % (11.8-14.1); RDW-SD 41.7 fL; WBC 4.68 10^3/uL (4.4-10.8)
[2021-06-27 13:23] LABS: ALT 29 U/L (16-63); AST 21 U/L (15-37); Albumin 4.1 g/dL (3.4-5.0); Alkaline Phosphatase 106 U/L (46-116); Anion Gap 4.9 mmol/L (3-11); BUN 9 mg/dL (7-18); Bilirubin, Total 0.5 mg/dL (0.2-1.0); CO2 32.1 mmol/L (21.0-32.0); CREATININE 0.9 mg/dL (0.70-1.30); Chloride 104 mmol/L (98-107); Glucose 112 mg/dL (74-106); Magnesium 2.3 mg/dL (1.8-2.4); Potassium 4.2 mmol/L (3.5-5.1); Sodium 141 mmol/L (136-145); Total Protein 7.6 g/dL (6.4-8.2)
[2021-06-28 18:04] LABS: CEA 79.8 ng/mL (See Note)
[2021-07-11] MEDS: Normal Saline Flush 10 ML SYR IVP (13:07)
[2021-07-11] MEDS: Heparin 500 UNITS/5 ML SYRINGE IV (13:08)
[2021-07-11 13:18] LABS: Abs Immature Grans 0.02 10^3/uL (0.0-0.06); Absolute Basophil Count 0.04 10^3/uL (0.0-0.2); Absolute Eosinophil Count 0.05 10^3/uL (0.0-0.7); Absolute Monocyte Count 0.71 10^3/uL (0.1-0.8); Absolute Neutrophil Count 2.18 10^3/uL (1.2-6.7); Basophils % 0.9; Eosinophils % 1.1; HCT 43.2 % (40.0-50.0); HGB 15.2 g/dL (13.5-17.5); Immature Grans % 0.5; Lymphocytes % 31.8; MCH 33.8 pg (27.0-33.0); MCHC 35.2 % (32.0-36.0); MPV 8.9 fL (8.0-11.0); Monocytes % 16.1; Neutrophils % 49.6; Nucleated RBC 0 %; Platelet Count 171 10^3/uL (130-400); RDW 12.6 % (11.8-14.1); RDW-SD 42.6 fL
[2021-07-11 13:33] LABS: ALT 33 U/L (16-63); AST 15 U/L (15-37); Albumin 3.7 g/dL (3.4-5.0); Alkaline Phosphatase 99 U/L (46-116); Anion Gap 5.8 mmol/L (3-11); BUN 13 mg/dL (7-18); Bilirubin, Total 0.5 mg/dL (0.2-1.0); CO2 29.2 mmol/L (21.0-32.0); CREATININE 0.8 mg/dL (0.70-1.30); Calcium 8.4 mg/dL (8.5-10.1); Chloride 106 mmol/L (98-107); Glucose 103 mg/dL (74-106); Magnesium 2.1 mg/dL (1.8-2.4); Potassium 3.6 mmol/L (3.5-5.1); Sodium 141 mmol/L (136-145); Total Protein 7.4 g/dL (6.4-8.2)
[2021-07-11 23:14] LABS: CEA 78.8 ng/mL (See Note)
== END 2021-07-19 23:59 | disposition home or self-care (01) ==
LOC: INF 01:47
PROVIDERS: Internal Medicine Medical Oncology; PCP Physician Assistant; Visit Provider Nurse Practitioner Family
DX: C79.9 Secondary malignant neoplasm of unspecified site (principal); C15.9 Malignant neoplasm of esophagus, unspecified; Z45.2 Encounter for adjustment and management of vascular access device
CPT/HCPCS: 36415; 36591; 80053; 82378; 83735; 85025

== ENCOUNTER 2021-08-08 01:23 | Outpatient (RCR) | payer MEDICARE, SELFPAY ==
[2021-07-25] MEDS: Normal Saline Flush 10 ML SYR IVP (12:38)
[2021-07-25] MEDS: Heparin 500 UNITS/5 ML SYRINGE IV (12:38)
[2021-07-25 12:59] LABS: Abs Immature Grans 0.01 10^3/uL (0.0-0.06); Absolute Basophil Count 0.03 10^3/uL (0.0-0.2); Absolute Eosinophil Count 0.06 10^3/uL (0.0-0.7); Absolute Lymphocyte Count 1.23 10^3/uL (1.2-3.4); Absolute Monocyte Count 0.69 10^3/uL (0.1-0.8); Basophils % 0.7; Eosinophils % 1.4; HCT 40.4 % (40.0-50.0); HGB 14.5 g/dL (13.5-17.5); Immature Grans % 0.2; Lymphocytes % 28.9; MCH 34.3 pg (27.0-33.0); MCHC 35.9 % (32.0-36.0); MCV 95.5 fL (80-95); Monocytes % 16.2; Neutrophils % 52.6; Nucleated RBC 0 %; Platelet Count 151 10^3/uL (130-400); RBC 4.23 10^6/uL (4.36-5.78); RDW 13.4 % (11.8-14.1); RDW-SD 45.2 fL; WBC 4.25 10^3/uL (4.4-10.8)
[2021-07-25 13:02] LABS: Absolute Neutrophil Count 2.24 10^3/uL (1.2-6.7)
[2021-07-25 13:11] LABS: ALT 33 U/L (16-63); AST 20 U/L (15-37); Alkaline Phosphatase 103 U/L (46-116); Anion Gap 9.1 mmol/L (3-11); BUN 10 mg/dL (7-18); Bilirubin, Total 0.5 mg/dL (0.2-1.0); CO2 26.9 mmol/L (21.0-32.0); CREATININE 0.9 mg/dL (0.70-1.30); Calcium 8.8 mg/dL (8.5-10.1); Chloride 106 mmol/L (98-107); Glucose 153 mg/dL (74-106); Potassium 3.7 mmol/L (3.5-5.1); Sodium 142 mmol/L (136-145); Total Protein 7.4 g/dL (6.4-8.2)
[2021-08-08] MEDS: Normal Saline Flush 10 ML SYR IVP (12:31)
[2021-08-08] MEDS: Heparin 500 UNITS/5 ML SYRINGE IV (12:31)
[2021-08-08 12:47] LABS: Abs Immature Grans 0.01 10^3/uL (0.0-0.06); Absolute Basophil Count 0.03 10^3/uL (0.0-0.2); Absolute Eosinophil Count 0.06 10^3/uL (0.0-0.7); Absolute Lymphocyte Count 1.02 10^3/uL (1.2-3.4); Absolute Monocyte Count 0.81 10^3/uL (0.1-0.8); Absolute Neutrophil Count 2.22 10^3/uL (1.2-6.7); Basophils % 0.7; Eosinophils % 1.4; HCT 41.4 % (40.0-50.0); HGB 14.6 g/dL (13.5-17.5); Immature Grans % 0.2; Lymphocytes % 24.6; MCH 34.7 pg (27.0-33.0); MCHC 35.3 % (32.0-36.0); MCV 98.3 fL (80-95); MPV 9.1 fL (8.0-11.0); Monocytes % 19.5; Neutrophils % 53.6; Nucleated RBC 0 %; Platelet Count 157 10^3/uL (130-400); RBC 4.21 10^6/uL (4.36-5.78); RDW 14.3 % (11.8-14.1); RDW-SD 50.2 fL; WBC 4.15 10^3/uL (4.4-10.8)
[2021-08-08 13:00] LABS: ALT 37 U/L (16-63); AST 23 U/L (15-37); Albumin 3.9 g/dL (3.4-5.0); Alkaline Phosphatase 106 U/L (46-116); Anion Gap 6.7 mmol/L (3-11); BUN 9 mg/dL (7-18); Bilirubin, Total 0.4 mg/dL (0.2-1.0); CO2 29.3 mmol/L (21.0-32.0); CREATININE 0.8 mg/dL (0.70-1.30); Calcium 8.8 mg/dL (8.5-10.1); Chloride 106 mmol/L (98-107); Glucose 95 mg/dL (74-106); Potassium 3.8 mmol/L (3.5-5.1); Sodium 142 mmol/L (136-145); Total Protein 7.4 g/dL (6.4-8.2)
[2021-08-08 23:20] LABS: CEA 108.3 ng/mL (See Note)
== END 2021-08-19 23:59 | disposition home or self-care (01) ==
LOC: INF 01:23
PROVIDERS: Internal Medicine Medical Oncology; PCP Physician Assistant; Visit Provider Nurse Practitioner Family
DX: C79.9 Secondary malignant neoplasm of unspecified site (principal); C15.9 Malignant neoplasm of esophagus, unspecified; Z45.2 Encounter for adjustment and management of vascular access device
CPT/HCPCS: 36591; 80053; 82378; 85025

== ENCOUNTER 2021-09-12 02:53 | Outpatient (RCR) | payer MEDICARE, SELFPAY ==
[2021-08-22] MEDS: Normal Saline Flush 10 ML SYR IVP (12:13)
[2021-08-22 12:23] LABS: Abs Immature Grans 0.01 10^3/uL (0.0-0.06); Absolute Basophil Count 0.06 10^3/uL (0.0-0.2); Absolute Eosinophil Count 0.06 10^3/uL (0.0-0.7); Absolute Lymphocyte Count 1.02 10^3/uL (1.2-3.4); Absolute Monocyte Count 0.81 10^3/uL (0.1-0.8); Absolute Neutrophil Count 2.42 10^3/uL (1.2-6.7); Basophils % 1.4; Eosinophils % 1.4; HCT 41.8 % (40.0-50.0); HGB 14.8 g/dL (13.5-17.5); Immature Grans % 0.2; Lymphocytes % 23.3; MCHC 35.4 % (32.0-36.0); MCV 98.8 fL (80-95); MPV 9.3 fL (8.0-11.0); Monocytes % 18.5; Neutrophils % 55.2; Nucleated RBC 0 %; Platelet Count 157 10^3/uL (130-400); RBC 4.23 10^6/uL (4.36-5.78); RDW 14.7 % (11.8-14.1); RDW-SD 52.3 fL; WBC 4.38 10^3/uL (4.4-10.8)
[2021-08-22 12:37] LABS: ALT 35 U/L (16-63); AST 21 U/L (15-37); Albumin 3.8 g/dL (3.4-5.0); Alkaline Phosphatase 107 U/L (46-116); Anion Gap 6.6 mmol/L (3-11); BUN 10 mg/dL (7-18); Bilirubin, Total 0.3 mg/dL (0.2-1.0); CO2 30.4 mmol/L (21.0-32.0); CREATININE 0.9 mg/dL (0.70-1.30); Calcium 8.8 mg/dL (8.5-10.1); Chloride 107 mmol/L (98-107); Glucose 85 mg/dL (74-106); Potassium 3.9 mmol/L (3.5-5.1); Sodium 144 mmol/L (136-145); Total Protein 7.4 g/dL (6.4-8.2)
[2021-08-23 03:41] LABS: CEA 110.6 ng/mL (See Note)
[2021-09-12] MEDS: Normal Saline Flush 10 ML SYR IVP (09:57)
[2021-09-12] MEDS: Heparin 500 UNITS/5 ML SYRINGE IV (09:58)
[2021-09-12 10:18] LABS: Abs Immature Grans 0.01 10^3/uL (0.0-0.06); Absolute Basophil Count 0.05 10^3/uL (0.0-0.2); Absolute Eosinophil Count 0.09 10^3/uL (0.0-0.7); Absolute Lymphocyte Count 1.12 10^3/uL (1.2-3.4); Absolute Monocyte Count 0.89 10^3/uL (0.1-0.8); Absolute Neutrophil Count 1.66 10^3/uL (1.2-6.7); Basophils % 1.3; Eosinophils % 2.4; HCT 41.5 % (40.0-50.0); HGB 14.6 g/dL (13.5-17.5); Immature Grans % 0.3; Lymphocytes % 29.3; MCH 35.8 pg (27.0-33.0); MCHC 35.2 % (32.0-36.0); MCV 101.7 fL (80-95); MPV 9.8 fL (8.0-11.0); Monocytes % 23.3; Neutrophils % 43.4; Nucleated RBC 0 %; Platelet Count 171 10^3/uL (130-400); RBC 4.08 10^6/uL (4.36-5.78); RDW 14.5 % (11.8-14.1); RDW-SD 54.4 fL; WBC 3.82 10^3/uL (4.4-10.8)
[2021-09-12 10:34] LABS: ALT 35 U/L (16-63); AST 25 U/L (15-37); Alkaline Phosphatase 101 U/L (46-116); Anion Gap 8.2 mmol/L (3-11); BUN 12 mg/dL (7-18); Bilirubin, Total 0.4 mg/dL (0.2-1.0); CO2 26.8 mmol/L (21.0-32.0); CREATININE 0.8 mg/dL (0.70-1.30); Calcium 8.9 mg/dL (8.5-10.1); Chloride 106 mmol/L (98-107); Glucose 58 mg/dL (74-106); Magnesium 2.2 mg/dL (1.8-2.4); Sodium 141 mmol/L (136-145); Total Protein 7.7 g/dL (6.4-8.2)
== END 2021-09-19 23:59 | disposition home or self-care (01) ==
LOC: INF 02:53
PROVIDERS: Internal Medicine Medical Oncology; PCP Physician Assistant; Visit Provider Nurse Practitioner Family
DX: C15.9 Malignant neoplasm of esophagus, unspecified (principal); C79.9 Secondary malignant neoplasm of unspecified site; Z45.2 Encounter for adjustment and management of vascular access device
CPT/HCPCS: 36415; 36591; 80053; 82378; 83735; 85025

== ENCOUNTER 2021-10-24 10:00 | Outpatient (RCR) | payer MEDICARE, SELFPAY ==
[2021-10-24] MEDS: Heparin 500 UNITS/5 ML SYRINGE IV (10:37)
[2021-10-24] MEDS: Normal Saline Flush 10 ML SYR IVP (10:37)
[2021-10-24 10:40] LABS: Abs Immature Grans 0.04 10^3/uL (0.0-0.06); Absolute Basophil Count 0.05 10^3/uL (0.0-0.2); Absolute Eosinophil Count 0.15 10^3/uL (0.0-0.7); Absolute Lymphocyte Count 1.26 10^3/uL (1.2-3.4); Absolute Monocyte Count 0.67 10^3/uL (0.1-0.8); HCT 46.9 % (40.0-50.0); HGB 16.3 g/dL (13.5-17.5); Immature Grans % 0.8; Lymphocytes % 25.4; MCH 34.9 pg (27.0-33.0); MCHC 34.8 % (32.0-36.0); MCV 100.4 fL (80-95); MPV 10.1 fL (8.0-11.0); Monocytes % 13.5; Neutrophils % 56.3; Nucleated RBC 0 %; Platelet Count 178 10^3/uL (130-400); RBC 4.67 10^6/uL (4.36-5.78); RDW 11.4 % (11.8-14.1); RDW-SD 42.6 fL; WBC 4.97 10^3/uL (4.4-10.8)
[2021-10-24 10:58] LABS: ALT 36 U/L (16-63); AST 19 U/L (15-37); Alkaline Phosphatase 102 U/L (46-116); Anion Gap 7.9 mmol/L (3-11); BUN 8 mg/dL (7-18); Bilirubin, Total 0.4 mg/dL (0.2-1.0); CO2 30.1 mmol/L (21.0-32.0); CREATININE 0.8 mg/dL (0.70-1.30); Calcium 9.1 mg/dL (8.5-10.1); Chloride 104 mmol/L (98-107); Glucose 123 mg/dL (74-106); Magnesium 2.4 mg/dL (1.8-2.4); Potassium 4.2 mmol/L (3.5-5.1); Sodium 142 mmol/L (136-145); Total Protein 7.8 g/dL (6.4-8.2)
[2021-10-24 18:39] LABS: CEA 119.3 ng/mL (See Note)
== END 2021-11-17 23:59 | disposition home or self-care (01) ==
LOC: INF 10:00
PROVIDERS: Internal Medicine Medical Oncology; PCP Physician Assistant
DX: C15.9 Malignant neoplasm of esophagus, unspecified (principal); C79.9 Secondary malignant neoplasm of unspecified site; Z45.2 Encounter for adjustment and management of vascular access device
CPT/HCPCS: 36591; 80053; 82378; 83735; 85025

== ENCOUNTER 2022-07-17 02:41 | Outpatient (RCR) | payer MEDICARE, SELFPAY ==
[2022-06-21] MEDS: Normal Saline Flush 10 ML SYR IVP (13:40)
[2022-06-21 14:00] LABS: Abs Immature Grans 0.01 10^3/uL (0.0-0.06); Absolute Basophil Count 0.04 10^3/uL (0.0-0.2); Absolute Eosinophil Count 0.14 10^3/uL (0.0-0.7); Absolute Lymphocyte Count 1.44 10^3/uL (1.2-3.4); Absolute Monocyte Count 0.82 10^3/uL (0.1-0.8); Absolute Neutrophil Count 4.27 10^3/uL (1.2-6.7); Basophils % 0.6; Eosinophils % 2.1; HCT 48.1 % (40.0-50.0); HGB 17.1 g/dL (13.5-17.5); Immature Grans % 0.1; Lymphocytes % 21.4; MCH 33.9 pg (27.0-33.0); MCHC 35.6 % (32.0-36.0); MCV 95 fL (80-95); MPV 10.1 fL (8.0-11.0); Monocytes % 12.2; Neutrophils % 63.6; Platelet Count 224 10^3/uL (130-400); RBC 5.05 10^6/uL (4.36-5.78); RDW 12.2 % (11.8-14.1); RDW-SD 42.9 fL; WBC 6.72 10^3/uL (4.4-10.8)
[2022-06-21 14:19] LABS: ALT 20 U/L (16-63); AST 13 U/L (15-37); Albumin 4.3 g/dL (3.4-5.0); Alkaline Phosphatase 113 U/L (46-116); BUN 11 mg/dL (7-18); Bilirubin, Total 0.4 mg/dL (0.2-1.0); CREATININE 0.9 mg/dL (0.70-1.30); Calcium 9.4 mg/dL (8.5-10.1); Chloride 101 mmol/L (98-107); Estimated GFR 95.37 (mL/min/1.73m2); Glucose 135 mg/dL (74-106); Potassium 3.9 mmol/L (3.5-5.1); Sodium 138 mmol/L (136-145)
[2022-06-21 23:38] LABS: CEA 230.4 ng/mL (See Note)
[2022-07-17 10:24] LABS: Absolute Basophil Count 0.06 10^3/uL (0.0-0.2); Absolute Eosinophil Count 0.09 10^3/uL (0.0-0.7); Absolute Lymphocyte Count 1.04 10^3/uL (1.2-3.4); Absolute Monocyte Count 0.68 10^3/uL (0.1-0.8); Absolute Neutrophil Count 2.81 10^3/uL (1.2-6.7); Basophils % 1.3; Eosinophils % 1.9; HCT 47.1 % (40.0-50.0); Lymphocytes % 22.2; MCH 33.7 pg (27.0-33.0); MCHC 36.1 % (32.0-36.0); MCV 94 fL (80-95); MPV 8.8 fL (8.0-11.0); Monocytes % 14.5; Neutrophils % 60.1; Platelet Count 323 10^3/uL (130-400); RBC 5.04 10^6/uL (4.36-5.78); RDW 12.4 % (11.8-14.1); WBC 4.68 10^3/uL (4.4-10.8)
[2022-07-17 10:38] LABS: ALT 33 U/L (16-63); AST 13 U/L (15-37); Albumin 3.9 g/dL (3.4-5.0); Alkaline Phosphatase 123 U/L (46-116); BUN 10 mg/dL (7-18); Bilirubin, Total 0.4 mg/dL (0.2-1.0); CREATININE 0.9 mg/dL (0.70-1.30); Calcium 10.5 mg/dL (8.5-10.1); Chloride 96 mmol/L (98-107); Estimated GFR 95.37 (mL/min/1.73m2); Glucose 137 mg/dL (74-106); Potassium 3.8 mmol/L (3.5-5.1); Sodium 135 mmol/L (136-145); Total Protein 8.2 g/dL (6.4-8.2)
== END 2022-07-19 23:59 | disposition home or self-care (01) ==
LOC: INF 02:41
PROVIDERS: PCP Physician Assistant; Visit Provider Internal Medicine Medical Oncology
DX: C15.9 Malignant neoplasm of esophagus, unspecified (principal); Z45.2 Encounter for adjustment and management of vascular access device
CPT/HCPCS: 36415; 36591; 80053; 82378; 85025